=== PATIENT | male | born 2000 | race Caucasian/White ===

== ENCOUNTER 2022-09-21 07:43 | Outpatient (OUT) | payer BC, SELFPAY ==
[2022-09-21 08:40] LABS: Basophils Percent Auto 0.4 % (0.2-2.0); Eosinophils Absolute Auto 0.1 10^3/uL (0.0-0.7); Eosinophils Percent Auto 1.5 % (0.9-7.0); Estimated Average Glucose 105 mg/dL; Glycohemoglobin A1C 5.3 % (4.5-6.2); Hematocrit 47.1 % (42.0-54.0); Hemoglobin 16.6 g/dL (14.0-18.0); Immature Granulocytes Abs Auto 0.01 10^3/uL (0.00-0.03); Immature Granulocytes Pct Auto 0.2 % (0.0-0.5); Lymphocytes Percent Auto 43.6 % (20.5-60.0); Mean Corpuscular HGB Conc 35.2 g/dL (29.9-35.2); Mean Corpuscular Hemoglobin 30.7 pg (25.9-34.0); Mean Corpuscular Volume 87.1 fL (80.0-94.0); Mean Platelet Volume 10.3 fL (9.5-13.5); Monocytes Absolute Auto 0.5 10^3/uL (0.3-0.8); Monocytes Percent Auto 11.2 % (1.7-12.0); Neutrophils Percent Auto 43.1 % (43.0-75.0); Nucleated Red Blood Cells 0; Platelet Count 185 10^3/uL (150-450); Red Blood Count 5.41 10^6/uL (4.70-6.10); Red Cell Distribution Width 11.7 % (11.0-15.0); White Blood Count 4.6 10^3/uL (4.0-11.0)
[2022-09-21 09:18] LABS: Alanine Aminotransferase 57 U/L (16-63); Albumin Globulin Ratio 1.1; Albumin Level 4.2 g/dL (3.4-5.0); Alkaline Phosphatase 50 U/L (46-116); Anion Gap 13.2; Aspartate Amino Transferase 23 U/L (15-37); Bilirubin Total 0.9 mg/dL (0.2-1.0); Calcium 9.1 mg/dL (8.5-10.1); Carbon Dioxide 28.6 mmol/L (21.0-32.0); Chloride 101 mmol/L (98-107); Chol HDL Ratio 5.3; Cholesterol 212 mg/dL (<=200); Estimated GFR (African America >60 (>=60); Estimated GFR (Non-African Ame >60 (>=60); Free T3 3.27 pg/mL (2.18-3.98); Globulin 3.8 g/dL; Glucose 101 mg/dL (74-106); HDL Cholesterol 40 mg/dL (40-60); Potassium 3.8 mmol/L (3.5-5.1); Sodium 139 mmol/L (136-145); Thyroid Stimulating Hormone 0.019 uIU/mL (0.358-3.740); Triglycerides 126 mg/dL (<=150); VLDL CHOLESTEROL 25.2 mg/dL
== END 2022-09-21 07:44 ==
LOC: LAB 07:47
PROVIDERS: PCP Family Medicine; Visit Provider Family Medicine
DX: Z00.00 Encounter for general adult medical examination without abnormal findings (principal); E55.9 Vitamin D deficiency, unspecified
CPT/HCPCS: 36415; 80053; 80061; 82306; 83036; 83525; 83540; 84436; 84443; 84481; 85025

== ENCOUNTER 2023-01-16 14:23 | Emergency (ER) | payer BC, SELFPAY ==
[2023-01-16 14:31] VITALS: BP 142/82; PULSE 83; RESP 16; TEMP 36.8; O2SAT 98; BMI 32.3
--- NOTE | 2023-01-16 14:42 | PC.NURSE ---
Pt being evaluated for chest pain that he's had on and off for awhile but worse today since waking up. Staying constantly, 7/10 on pain scale. Denies SOB, URI sx, anxiety, or getting worse after eaating. pt took tylenol this morning, but it did not help.
--- NOTE | 2023-01-16 14:45 | ECG_ITS ---
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
--- NOTE | 2023-01-16 14:45 | XR_ITS ---
The [address] [address] Patient Name: GABINO CAMERON MRN: [id number] date: 2000 Sex: M Assigned Patient Location: ER Current Patient Location: ER Accession/Order Number: [id number] Exam Date: 01/16/2023 14:55 Report Date: 01/16/2023 15:12 At the request of: CHAPO MENDES Procedure: XR chest 2V EXAM: XR chest 2V HISTORY: chest pain COMPARISON: None. TECHNIQUE: Frontal and lateral views of the chest. FINDINGS: The lungs are clear. No pleural effusion or pneumothorax. The cardiomediastinal silhouette is unremarkable. No acute osseous or soft tissue abnormality. XR/XR chest 2V IMPRESSION: 1. No acute cardiopulmonary process. Electronically authenticated by: SHAI ADAN Date: 01/16/2023 15:12
--- NOTE | 2023-01-16 17:27 | ED_ITS ---
HPI - General Adult General Chief complaint: Chest Pain Stated complaint: CHEST PAIN Time Seen by Provider: 01/16/23 14:46 Source: patient Mode of arrival: walk-in Limitations: no limitations History of Present Illness HPI narrative: patient is a 22-year-old male who is presenting to the Emergency Room with chief complaint Of intermittent left lower chest pain/left upper quadrant pain intermittently going on for 3 months. Patient does not believe he is constipated, patient states he has normal bowel movements. Patient says is no radiation the pain into his neck, jaw or arms. The pain does not wrap around to his flank or back. Patient did not have the pain last evening, the patient woke up with pain this morning that lasted throughout the morning until dissipating Ceftin and. Patient is an engineering project designer. Patient does not do any significant heavy lifting, twisting or turning at work. Patient was working at home this past weekend, but nothing anything significantly because of pain. Patient does not have any acid reflux. Patient is a nonsmoker, no cocaine use. No rash. No history of acid reflux or ulcers, no other acute complaints. Patient currently doesn't have any pain. All systems are negative except as noted/marked. All systems reviewed and otherwise negative. . Nurses note and vital signs reviewed and patient is not hypoxic. General: The patient appears well and in no apparent distress. Patient is resting comfortably on cart. Patient is not toxic, lethargic, or listless Skin: Warm, dry, no pallor noted. There is no rash noted. No petechiae, purpura. Head: Normocephalic, atraumatic Eye: Normal conjunctiva, no drainage, EOMI. PERRL Ears, Nose, Mouth, and Throat: oral mucosa is moist. Nares patent. Mouth without vesicles. Cardiovascular: Regular Rate and Rhythm, no murmur, gallop, rub. No reproducible tenderness to palpation to anterior, lateral, posterior chest wall. Respiratory: Patient is in no distress, no accessory muscle use, lungs are clear to auscultation, no wheezing, rales or rhonchi Back: non-tender, no CVA tenderness bilaterally to percussion. No CT LS midline pain GI: soft, no tenderness to palpation, no masses appreciated. No rebound, guarding, or rigidity noted. No flank pain bilateral, No distention Musculoskeletal: Patient has full range of motion of all of the extremities, no motor, sensory, or focal neurological deficits Neurological: A&O x3, normal speech Psychiatric: Cooperative Related Data Allergies Allergy/AdvReac Type Severity Reaction Status Date / Time No Known Drug Allergies Allergy Verified 01/16/23 14:35 PFSH PFSH Social History Smoking status: Never smoker Exam Constitutional Vital Signs, click to edit/add: Last Vital Signs Temp 98.3 F 01/16/23 14:31 Pulse 83 01/16/23 14:31 Resp 16 01/16/23 14:31 BP 142/82 H 01/16/23 14:31 Pulse Ox 98 01/16/23 14:31 O2 Del Method Room Air 01/16/23 14:31 Course Vital Signs Vital signs: Vital Signs Temperature 98.3 F 01/16/23 14:31 Pulse Rate 83 01/16/23 14:31 Respiratory Rate 16 01/16/23 14:31 Blood Pressure 142/82 H 01/16/23 14:31 Pulse Oximetry 98 01/16/23 14:31 Oxygen Delivery Method Room Air 01/16/23 14:31 Temperature 98.3 F 01/16/23 14:31 Pulse Rate 83 01/16/23 14:31 Respiratory Rate 16 01/16/23 14:31 Blood Pressure 142/82 H 01/16/23 14:31 Pulse Oximetry 98 01/16/23 14:31 Oxygen Delivery Method Room Air 01/16/23 14:31 Medical Decision Making MDM Narrative Medical decision making narrative: Chest x-ray shows no acute cardiopulmonary disease, no infiltrate, no effusion. EKG showed no acute findings. Education on possible etiologies were discussed at bedside. No additional lab testing at this time. No PE risk factors. Patient will follow-up with PCP for additional outpatient testing if needed. ECG Data Attestation: I personally reviewed and interpreted this ECG as follows: (Pay EKG. EKG interpretation. Normal sinus rhythm 82 beats a minute. Normal axis deviation. No acute ST elevation, no acute ectopy. QTC of 411) Discharge Plan Discharge Chief Complaint: Chest Pain Clinical Impression: Atypical chest pain Patient Disposition: Home, Self-Care Time of Disposition Decision: 16:05 Condition: Good Mode of Transportation: Private Vehicle Instructions: Chest Pain (ED) Additional Instructions: Follow up with your PCP for outpatient testing as indicated if he continued to have left lower chest pain/left upper quadrant abdominal pain. Stand Alone Forms: Portal Instructions Referrals: Yadiel Handley MD [Primary Care Provider] - 1 week Discharge Date/Time: 01/16/23 16:10
== END 2023-01-16 16:10 | disposition home or self-care (01) ==
PROVIDERS: Emergency Provider Emergency Medicine; PCP Family Medicine
DX: R07.89 Other chest pain (principal)
CPT/HCPCS: 71046; 93005; 99284

== ENCOUNTER 2024-11-21 06:38 | Outpatient (OUT) | payer BC, SELFPAY ==
--- OUTSIDE RECORDS SUMMARY | 2023-11-06 07:55 | XMS_ITS ---
Author Organization The [facility] in [place] Address [address] [place] [address] Care Team Providers Care Pediatric Speech Therapist Name Role Phone Clive Handley Primary Care Provider Medications Medication SIG (Take, Route, Frequency, Duration) Notes Start Date End Date Status Levothyroxine Sodium 175 MCG 1 tablet in the morning on an empty stomach Orally Once a day for 90 days 08/28/2022 Active Encounters Encounter Location Date Provider Diagnosis [address] [address] 11/06/2023 Clive Handley Plan Of Treatment Medication Medication Name Sig Start Date Stop Date Notes Levothyroxine Sodium 175 MCG 1 tablet in the morning on an empty stomach Orally Once a day for 90 days 08/28/2022 Progress Notes * Reg SMITH LDOB:[birth year] (23 yo M)Acc No.[id number]:11/06/2023 Patient: Reg MCMULLEN :2000 A ge:23 Y S ex:Male Address:[address] [place] [address] [address] [place], [address] * Refills Refill Levothyroxine Sodium Tablet, 175 MCG, Orally, 90 Tablet, 1 tablet in the morning on an empty stomach, Once a day, 90 days, Refills=3 * true * Date: Generated for Gemai ng/Faselinag/eTransmitting on: 0 11/21/2024 06:39 AM EDT
--- OUTSIDE RECORDS SUMMARY | 2024-11-05 11:15 | XMS_ITS ---
Author Organization [facility] in [place] Address [address] [place] [address] Care Team Providers Care Animal Control Supervisor Name Role Phone Clive Handley Primary Care Provider Allergies No Known Allergies REASON FOR VISIT 6 month f/u needs refills Medications Medication SIG (Take, Route, Frequency, Duration) Notes Start Date End Date Status Levothyroxine Sodium 175 MCG 1 tablet in the morning on an empty stomach Orally Once a day for 90 days 08/28/2022 Active Social History Tobacco Use: Social History Observation Description Date Details (start date - stop date) Never Smoker NA - NA Tobacco Use/Smoking Question Answer Notes Patient is a nonsmoker AUDIT-C (Standard) Question Answer Notes Did you have a drink containing alcohol in the p ast year? No Points 0 Interpretation Negative Vital Signs Blood pressure systolic 126 mm Hg 11/06/19 25 Blood pressure diastolic 80 mm Hg 025 Height 70 in 11/05/2024 Weight 208.6 lbs 11/05/2024 BMI 29.93 kg/m2 11/05/2024 Encounters Encounter Location Date Provider Diagnosis [facility] [address] [place] [address] 11/05/2024 Clive Handley Well adult Z00.0 0 Assessments Encounter Date Diagnosis (ICD Code) Assessment Notes Treatment Notes Treatment Clinical Notes Section Notes 11/05/2024 Well adult (ICD-10 - Z00.00) Plan Of Treatment Pending Test Test Name Order Date HEMOGLOBIN A1C (GLYCO) 11/05/2024 LIPID PANEL (CHOL/TRIG/HDL/LDL) 11/06/19 25 THYROID PANEL (T4/TSH/FREE T3) 5 CMP (COMP MET PAPPAS) w/eGFR CKD-EPI 2024 CBC WITH DIFF 11/05/2024 Progress Notes * Reg MSITH LDOB:[birth year] (24 yo M)Acc No.[id number]:11/05/2024 Progress Note Patient: Reg MCMULLEN Provider: Deniz Handley ([facility])MD :2000 A ge:24 Y S ex:Male Date:11/05/2024 Address:[address] [place] [address] [address] , [place], [id number] Check In:03:17 PM ESTCheck O ut:03:50 PM EST Subjective: * Chief Complaints: * 6 month f/u needs refills * ROS: E ENT: hearing changes d enies. v isual changes d enies.?non-healing mouth sores d enies. s wollen glands or neck lumps d enies. h oarseness d enies. s ore throat d enies. d ifficulty swallowing d enies. n ose bleeds d enies. n moo congestion d enies. e ar ache d enies. e ar discharge?denies. r inging in ears d enies. l ight sensitivity d enies. e ye pain d enies. b lurring d enies. e ye irritation d enies. d ouble vision d enies.?vision loss d enies. G eneral/Constitutional: Sweats: D enies. F atigue d enies. S leep problems d enies. A norexia d enies. M alaise d enies. W eight loss d enies.?Fatigue or Weakness d enies. F ever or Chills d enies. C ardiovascular: Shortness of Breath w/lying flat d enies. L ightheadedness/dizziness d enies. C hest tightness/ heavy pressure d enies. S welling of legs, ankles, or feet d enies. W aking up with shortness of breath d enies. C hest pain denies. P alpitations d enies. W eight gain d enies. R espiratory: Chronic or frequent cough d enies. C oughing up blood?denies. D ifficulty breathing d enies. P roductive cough d enies. S noring?denies. S hortness of breath that awakens from sleep (PND) d enies. C hest pain d enies. S putum production d enies. W heezing d enies. M usculoskeletal: Joint pain d enies. J oint Fluid d enies. B ack pain d enies. K nee pain d enies. N yee pain d enies. J oint Stiffness d enies. M uscle cramps d enies. W eakness of muscles d enies. A rthritis d enies. M uscle aches d enies. P ain in shoulder(s) d enies. S wollen joints d enies. 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 Modified On:09/15/2022 Status:confirmed W45.0XXA Nail entering throug h skin, initial encounter Modified On:09/15/2022 Status:confirmed Z20.828 Contact with and (galvan spected) exposure to other viral communicable diseases Modified On:09/15/2022 Status:confirmed J45.909 Asthma Modified On:09/15/2022 Status:confirmed E03.9 Hypothyroidism Modified On:09/15/2022 Status:confirmed I95.1 Orthostasis Modified On:09/15/2022 Status:confirmed L30.9 Eczema Modified On:09/15/2022 Status:confirmed J30.9 Allergic rhinitis Modified On:09/15/2022 Status:confirmed Z00.00 Well adult Modified On:09/20/2022 Status:confirmed B19.10 Hepatitis B Modified On:05/26/2023W/U Status:confirmed Z00.129 Well child visit Modified On:09/15/2022W/U Status:confirmed S91.332A Puncture wound of le ft foot without foreign body, initial encounter Modified On:09/15/2022/U Status:confirmed E03.9 Hypothyroidism, unsp ecified Modified On:08/28/2022/U Status:confirmed * Medical History: * Surgical History: D enies Past Surgical History * Hospitalization/Major Diagno stic Procedure: D enies Past Hospitalization * Family History: F ather: alive 58 yrs. M other: alive 56 yrs. S ister(s): alive. S on(s): alive.?1 sister(s) - healthy. 1 son(s) . . * Social History: T obacco Use: T obacco Use/Smoking P atient is a n onsmoker D rug/Alcohol: A JAKE-C (Standard) D id you have a drink containing alcohol in the past year? N o P oints 0 I nterpretation N egative * Medications: T akingLevothyroxine Sodium 175 MCG Tablet 1 tablet in the morning on an empty stomach Orally Once a day Taking Levothyroxine Sodium 175 MCG Tablet 1 tablet in the morning on an empty stomach Orally Once a day DiscontinuedKetoconazole 2 % Cream 1 application Externally Twice a day Terbinafine HCl 250 MG Tablet 1 capsule Orally Once a day Medication List reviewed and reconciled with the patientDiscontinued Ketoconazole 2 % Cream 1 application Externally Twice a day Discontinued Terbinafine HCl 250 MG Tablet 1 capsule Orally Once a day Medication List reviewed and reconciled with the patient * Allergies: N .K.D.A.no[Allergies Verified] Objective: * Vitals: W t:208.6lbs, Ht: 70 in, BP:126/80mm Hg, BMI:29.93Index, Ht-cm: 177.8 cm, Wt-k.62 kg. * Examination: P hysical Exam: GENERAL: w ell developed, well nourished, in no acute distress. HEAD: n ormocephalic/atraumatic. EYES: p upils equal, round and reactive to light, conjunctivae and sclerae normal. EARS: n o deformity or lesion of external ear, canals and TM appear normal bilaterally, TM's intact, not inflamed with normal light reflex, hearing grossly normal to conversational speech. NOSE: n o deformity, discharge, inflammation, or lesions.? MOUTH: m ucous membranes moist, normal oropharynx and posterior pharynx without lesions or exudates, tongue normal, dentition normal. NECK: n yee supple, no masses or palpable cervical nodes, trachea midline, thyroid without nodules, masses, tenderness, or enlargement. CHEST: n o chest wall deformity, no chest wall tenderness.? LUNGS: n ormal respiratory effort and clear to auscultation, no wheezes, rales, or rhonchi, good air exchange. CARDIO: r egular rate and rhythm, normal S1 and S2, nor murmur, rub, or gallop. PULSES: n ormal capillary refill. ABDOMEN: s oft, non-distended, non-tender, no masses. MUSCULOSKELETAL: n o deformity or scoliosis noted, normal range of motion, joints normal, no erythema, edema, effusion, or ecchymosis. EXTREMITY: n o clubbing, cyanosis, edema, or deformity with normal ROM in both upper and lower bilateral extremities. NEUROLOGIC: g rossly normal. SKIN: n o rashes, ulcerations, or suspicious lesions. LYMPH NODES: n o cervical adenopathy, nodes normal. MENTAL STATUS: a lert and oriented x3, normal mood and affect. Assessment: * Assessment: 1. W ell adult - Z00.00 (Primary) Plan: * Treatment: * Procedure Codes: * Preventive Medicine: Screenings/Counseling: B NE ACTION PLAN Above Normal BMI Follow-up D ietary management education, guidance, and counseling * * Sign off status: Completed Visit Status: C HK (Check Out) true * Provider: Deniz Handley ([facility])MD Date: 0 11/05/2024 Generated for Irene son/Marisol/Isabelitting on: 11/21/2024 06:40 AM EDT History and Physical Notes * Examination Category Sub-Category Detail Notes Category Not es Physical Exam GENERAL: well developed, well nourished, in no acute distress HEAD: normocephalic/atraum atic EYES: pupils equal, round and reactive to light, conjunctivae and sclerae normal EARS: no deformity or lesi on of external ear, canals and TM appear normal bilaterally, TM's intact, not inflamed with normal light reflex, hearing grossly normal to conversational speech NOSE: no deformity, discha rge, inflammation, or lesions MOUTH: mucous membranes tianna st, normal oropharynx and posterior pharynx without lesions or exudates, tongue normal, dentition normal NECK: neck supple, no mass es or palpable cervical nodes, trachea midline, thyroid without nodules, masses, tenderness, or enlargement CHEST: no chest wall deform ity, no chest wall tenderness LUNGS: normal respiratory e ffort and clear to auscultation, no wheezes, rales, or rhonchi, good air exchange CARDIO: regular rate and rhy thm, normal S1 and S2, nor murmur, rub, or gallop PULSES: normal capillary ref ill ABDOMEN: soft, non-distended, non-tender, no masses RECTAL: MUSCULOSKELETAL: no deformity or scol iosis noted, normal range of motion, joints normal, no erythema, edema, effusion, or ecchymosis EXTREMITY: no clubbing, cyanosi s, edema, or deformity with normal ROM in both upper and lower bilateral extremities NEUROLOGIC: grossly normal SKIN: no rashes, ulceratio ns, or suspicious lesions LYMPH NODES: no cervical adenopat hy, nodes normal MENTAL STATUS: alert and oriented x 3, normal mood and affect
--- OUTSIDE RECORDS SUMMARY | 2024-11-21 06:40 | XMS_ITS | Clinical Summary ---
Author Organization [facility] Address [address] [place] [address], [address] [place] [address] Care Team Providers Care Video Clerk Name Role Phone Yadeil Handley MD Primary Care Provider [phone] Allergies No known active allergies Medications No known medications Active Problems No known active problems Social History Tobacco Use Types Packs/Day Years Used Date Smoking Tobacco: Never Smokeless Tobacco: Never Alcohol Use Standard Drinks/Week Comments No 0 (1 standard drink = 0.6 oz pur e alcohol) Sex and Gender Information Value Date Recorded Sex Assigned at Not on file Legal Sex Male 7:35 PM EST Gender Identity Not on file Sexual Orientation Not on file Last Filed Vital Signs Vital Sign Reading Time Taken Comments Blood Pressure - - Pulse - - Temperature - - Respiratory Rate - - Oxygen Saturation - - Inhaled Oxygen Concentration - - Weight 56.7 kg (125 lb) 05/02/2012 10:08 AM EST Height 162.6 cm (5' 4 ) 05/02/2012 10:08 AM EST Body Mass Index 21.46 05/02/2012 10:08 AM EST Plan of Treatment Not on file Care Teams Video Clerk Relationship Specialty Start Date End Date Yadiel Handley MD [address] [phone] PCP - General 02/16/11
--- OUTSIDE RECORDS SUMMARY | 2024-11-21 06:40 | XMS_ITS | Clinical Summary ---
Author Organization [employer] [facility] tem Address [id number] [address] [place] [address] Care Team Providers Care Electrical Controls Assembler Name Role Phone Yadiel Handley MD Primary Care Provider [phone] Social History Tobacco Use Types Packs/Day Years Used Date Smoking Tobacco: Never Assessed Childcare Answer Date Recorded Childcare Unknown 10/02/2018 Employment Answer Date Recorded Employment Unknown 10/02/2018 Purpose - Life Answer Date Recorded Purpose and direction in life Unknown Sex and Gender Information Value Date Recorded Sex Assigned at Not on file Legal Sex Male 12:10 PM EDT Gender Identity Not on file Sexual Orientation Not on file Plan of Treatment Health Maintenance Due Date Last Done Comments Depression Screening 2010 Tobacco Screening 2010 Adult BMI Screening 2016 DTaP,Tdap and Td Vaccines (1 - Tdap) 2017 Influenza Vaccine 12/22/2024 Medical Devices Not on file Insurance [employer] [address] Care Teams Electrical Controls Assembler Relationship Specialty Start Date End Date Yadiel Handley MD PCP - General 12/12/17
[2024-11-21 06:51] LABS: Hematocrit 46.4 % (42.0-54.0); Hemoglobin 16.2 g/dL (14.0-18.0); Immature Granulocytes Abs Auto 0.02 10^3/uL (0.00-0.03); Immature Granulocytes Pct Auto 0.4 % (0.0-0.5); Lymphocytes Absolute Auto 2.1 10^3/uL (1.2-3.8); Mean Corpuscular HGB Conc 34.9 g/dL (29.9-35.2); Mean Corpuscular Hemoglobin 30.1 pg (25.9-34.0); Mean Corpuscular Volume 86.2 fL (80.0-94.0); Platelet Count 180 10^3/uL (150-450); Red Blood Count 5.38 10^6/uL (4.70-6.10); White Blood Count 4.7 10^3/uL (4.0-11.0)
[2024-11-21 07:27] LABS: Alanine Aminotransferase 47 U/L (16-63); Albumin Globulin Ratio 1.1; Albumin Level 4.2 g/dL (3.4-5.0); Alkaline Phosphatase 46 U/L (46-116); Anion Gap 13.3; Aspartate Amino Transferase 21 U/L (15-37); Blood Urea Nitrogen 13.0 mg/dL (7.0-18.0); Calcium 9.4 mg/dL (8.5-10.1); Carbon Dioxide 28.7 mmol/L (21.0-32.0); Chloride 102 mmol/L (98-107); Cholesterol 181 mg/dL (<=200); Estimated GFR (African America >60 (>=60 mL/min/1.73m^2); Estimated GFR (Non-African Ame >60 (>=60 mL/min/1.73m^2); Free T3 2.94 pg/mL (2.18-3.98); Globulin 3.7 g/dL; Glucose 104 mg/dL (74-106); HDL Cholesterol 56 mg/dL (40-60); Potassium 4.0 mmol/L (3.5-5.1); Sodium 140 mmol/L (136-145); Thyroid Stimulating Hormone <0.007 uIU/mL (0.358-3.740); Total Protein 7.9 g/dL (6.4-8.2); Triglycerides 64 mg/dL (<=150); VLDL CHOLESTEROL 12.8 mg/dL
== END 2024-11-21 06:39 | disposition home or self-care (01) ==
PROVIDERS: PCP Family Medicine; Visit Provider Family Medicine
DX: Z00.00 Encounter for general adult medical examination without abnormal findings (principal)
CPT/HCPCS: 36415; 80053; 80061; 83036; 84436; 84443; 84481; 85025